=== PATIENT | male | born 2000 | race Hispanic/Latino ===

== ENCOUNTER → 2019-01-17 | Day surgery (SDC) | payer BC ==
[2019-01-16 15:47] LABS: BASOPHILS % 0.6 % (0.0-1.0); EOSINOPHILS # (AUTO) 0.1 (0.0-0.4); EOSINOPHILS % 1.2 % (0.0-6.0); HEMATOCRIT 48.3 % (38.2-49.6); HEMOGLOBIN 16.4 g/dL (14.0-18.0); LYMPHOCYTES # (AUTO) 2.7 (1.0-3.2); MEAN CORPUSCULAR HEMOGLOBIN 29.9 pg (28-32); MONOCYTES # (AUTO) 0.5 (0.2-0.8); MONOCYTES % 7.1 % (4.4-11.3); NEUTROPHILS # (AUTO) 3.4 (2.1-6.9); NEUTROPHILS % 50.8 % (38.7-80.0); PLATELET COUNT 226 x10e3/uL (140-360); RED BLOOD COUNT 5.49 x10e6/uL (4.3-5.7); RED CELL DISTRIBUTION WIDTH 11.9 % (11.7-14.4)
[~2019-01-17] MED LIST: BUPIVACAINE 0.25%/EPI 30ML SDV INJ ONE; DEXAMETHASONE SOD PHOS INJ 4 MG/ML VIAL ONE; FENTANYL CITRATE/PF 100MCG/2 ML INJ ONE; LIDOCAINE HCL 2% LOCAL INJ 5 ML SDV VIAL INJ ONE; MIDAZOLAM HCL 2 MG/2 ML VIAL ONE; NEOSTIGMINE 1 MG/ML 10ML VIAL ONE; ONDANSETRON HCL INJ 2MG/ML 2ML 2 MG/ML VIAL ONE; PROPOFOL IV EMULSION 10 MG/ML 20 ML VIAL ONE; SEVOFLURANE INHAL SOLN 250 ML PEN BTL ONE
--- OUTSIDE RECORDS SUMMARY | 2019-01-17 09:06 | XMS REPORT ---
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 Allergies, Adverse Reactions, Alerts Allergy Name Allergy Type Status Severity Reaction(s) Onset Date Inactive Date Treating Clinician Comments No Known Allergies DA Active U 2018-06-14 00:00:00 No Known Contrast Allergies DA Active U 2008-04-20 00:00:00 No Known Drug Allergies DA Active U 2008-04-20 00:00:00 No Known Food Allergies DA Active U 2008-04-20 00:00:00 No Known Other Allergies DA Active U 2008-04-20 00:00:00 Medications This patient has no known medications.
[2019-01-17 12:45] VITALS: BP 115/54
--- NOTE | 2019-01-17 15:43 | Operative Report ---
DATE OF PROCEDURE: 01/17/2019 SURGEON: Cal Stockton MD PREOPERATIVE DIAGNOSIS: Perianal condyloma acuminatum. POSTOPERATIVE DIAGNOSIS: Perianal condyloma acuminatum. OPERATION PERFORMED: Resection and fulguration of condyloma acuminatum. ANESTHESIA: General. COMPLICATIONS: None. ESTIMATED BLOOD LOSS: Minimal. PROCEDURE IN DETAIL: With the patient lying in bed in the lithotomy position under good general anesthesia, the perineum was prepped with Betadine solution and draped in the usual manner. The patient has circumferential condylomas in the perianal area, there did not appear to be any intraanal condylomas, they were all on the outside. The whole area was then thoroughly infiltrated with 0.25% Marcaine with epinephrine. After this was done, condylomas were then totally fulgurated and removed, some of them were sent for pathological examination. All the condylomas that could be seen and all the area around it was similarly fulgurated to try to eliminate the possibility of recurrence. Once this was done, hemostasis was ascertained, a dressing was applied. The sponge, lap, and needle count was correct. The patient tolerated the procedure well and returned to the recovery room in stable condition. MD DUNCAN Pearson/MODL /[id number]
== END | disposition home or self-care (01) ==
LOC: OR 08:30
PROVIDERS: ATTEND Surgery
DX: A63.0 Anogenital (venereal) warts (principal)
CPT/HCPCS: 36415; 46922; 85025; 88305; J1100; J2001; J2250; J2405; J2704; J2710; 88304

== ENCOUNTER → 2019-03-30 | Day surgery (SDC) | payer BC ==
[2019-03-22 13:19] LABS: BASOPHILS % 0.6 % (0.0-1.0); EOSINOPHILS # (AUTO) 0.1 (0.0-0.4); EOSINOPHILS % 1.4 % (0.0-6.0); HEMATOCRIT 46.1 % (38.2-49.6); HEMOGLOBIN 15.8 g/dL (14.0-18.0); LYMPHOCYTES # (AUTO) 2.5 (1.0-3.2); LYMPHOCYTES % 50.1 % (18.0-39.1); MEAN CORPUSCULAR HEMOGLOBIN 30.6 pg (28-32); MEAN CORPUSCULAR HGB CONC 34.3 g/dL (31-35); MEAN CORPUSCULAR VOLUME 89.2 fL (81-99); MONOCYTES # (AUTO) 0.3 (0.2-0.8); MONOCYTES % 6.9 % (4.4-11.3); NEUTROPHILS % 40.8 % (38.7-80.0); PLATELET COUNT 185 x10e3/uL (140-360); RED BLOOD COUNT 5.17 x10e6/uL (4.3-5.7); RED CELL DISTRIBUTION WIDTH 12.1 % (11.7-14.4)
[~2019-03-30] MED LIST changes: +KETOROLAC TROMETHAMINE 30 MG/ML VIAL ONE; +LIDOCAINE HCL 1% LOCAL INJ 20 ML VIAL ONE; +LIDOCAINE HCL 2% 30 ML TUBE ONE
[2019-03-30 10:15] VITALS: BP 108/60
--- NOTE | 2019-03-30 11:48 | Operative Report ---
DATE OF PROCEDURE: 03/30/2019 SURGEON: Cal Stockton MD PREOPERATIVE DIAGNOSIS: Anal condylomas. POSTOPERATIVE DIAGNOSIS: Anal condylomas. OPERATION PERFORMED: Fulguration of anal condylomas. ANESTHESIA: General. COMPLICATIONS: None. ESTIMATED BLOOD LOSS: Minimal. DESCRIPTION OF PROCEDURE: The patient lying in bed in the lithotomy position under good general anesthesia. The perineum was prepped with Hibiclens solution and draped in the usual manner. The patient had several areas of condylomas at the 11 o'clock position, 1 o'clock position, and 8 o'clock position. All of this were fulgurated completely and we make sure that there was no other signs of any other condylomas in the anal canal or outside. Once this was done, Neosporin was applied. The patient tolerated the procedure well and returned to the recovery room in stable condition. Cal Stockton MD JLR/MODL /[id number]
== END | disposition home or self-care (01) ==
LOC: OR 06:25
PROVIDERS: ATTEND Surgery
DX: A63.0 Anogenital (venereal) warts (principal); Z01.812 Encounter for preprocedural laboratory examination
CPT/HCPCS: 36415; 46922; 85025; J1100; J1885; J2001; J2250; J2405; J2704; J2710; J3010